=== PATIENT | female | born 1955 | race Caucasian/White ===

== ENCOUNTER 2019-02-20 06:26 | Day surgery (SDC) | payer OTHER, MEDICARE ==
[2019-02-15 15:14] VITALS: BMI 23.9
[2019-02-20] MEDS ORDERED: MIDAZOLAM HCL 2 MG/2 ML SINGLE DOSE VIAL ONE ×2 (06:41)
[2019-02-20] MEDS ORDERED: PROPOFOL 20 ML ONE ×2 (06:41)
[2019-02-20] MEDS ORDERED: oxyCODONE HCL 5 MG TABLET PO PRN (07:01)
[2019-02-20] MEDS ORDERED: ONDANSETRON 4 MG/2 ML VIAL IVPUSH PRN (07:01)
[2019-02-20] MEDS ORDERED: POVIDONE-IODINE 5% OPHTHALMIC PREP 30 ML SOLUTION ONE (07:02)
[2019-02-20] MEDS ORDERED: ERYTHROMYCIN 0.5% OPHTHALMIC OINTMENT 3.5 GM TUBE ONE (07:02)
[2019-02-20] MEDS ORDERED: TETRACAINE 0.5% OPHTH SOLN 2 ML BOTTLE ONE (07:02)
[2019-02-20] MEDS ORDERED: LIDOCAINE 1%/EPI 1:100000 (20 ML MULTI DOSE VIAL) ONE (07:03)
[2019-02-20] MEDS ORDERED: LACTATED RINGERS SOLUTION 1,000 ML IV SCH (07:15)
[2019-02-20] MEDS ORDERED: GLYCOPYRROLATE 0.2 MG/1 ML VIAL ONE (07:42)
[2019-02-20] MEDS ORDERED: ceFAZolin SODIUM 1 GM VIAL ONE (07:59)
[2019-02-20] MEDS ORDERED: FLUMAZENIL 0.5 MG/5 ML VIAL ONE (08:28)
[2019-02-20] MEDS ORDERED: DEXAMETHASONE SOD PHOSPHATE 4 MG/1 ML VIAL ONE (09:33)
[2019-02-20] MEDS ORDERED: ONDANSETRON 4 MG/2 ML VIAL ONE (09:33)
[2019-02-20 10:08] VITALS: TEMP 97.7
[2019-02-20] MEDS ORDERED: ACETAMINOPHEN 325 MG TABLET (FP) ONE (10:41)
[2019-02-20] MEDS ORDERED: ACETAMINOPHEN 325 MG TABLET (FP) PO PRN (10:50)
[2019-02-20 11:06] VITALS: BP 141/64; PULSE 72
--- NOTE | 2019-02-20 13:53 | OP ---
DATE OF OPERATION: 02/20/2019 PREOPERATIVE DIAGNOSIS: Corneal ptosis, right upper lid with visual obstruction. POSTOPERATIVE DIAGNOSIS: Corneal ptosis, right upper lid with visual obstruction. PROCEDURE: External levator advancement reattachment, right upper lid. SURGEON: Luna Sands MD ANESTHESIA: Local with sedation. COMPLICATIONS: None. ESTIMATED BLOOD LOSS: 1 mL. OPERATIVE REPORT: Patient brought to the operating room, placed on the operating room table. Vital signs monitored by anesthesia. Tetracycline was placed in both eyes. Time-out was performed and then 0.75 mL of 1% Xylocaine, 1:100,000 epinephrine was injected after the lid crease was marked approximately 10 mm above the lash line centrally and curving nasally and temporally. Subcutaneous injection along the lid crease massaged down to the margin. Massaged. Applied hemostasis. Patient was prepped and draped in the usual sterile fashion exposing both eyes. Lid crease incision was made with a 15 blade, carried through skin and subcutaneous tissue. Humboldt needle was used for hemostasis, and dissection was carried down to the orbicularis. The orbicularis was then dissecting superiorly exposing the septum, which was widely opened exposing preaponeurotic fat. The levator aponeurosis was then identified. It was markedly diaphanous and dehisced. The leading edge was then advanced to the anterior superior tarsus, and initially a mattressed, horizontal 6-0 nylon was placed, and this was tied, and the patient was allowed to wake up and placed in upright position. The lid was deemed to be too high; therefore, the suture was removed and replaced with 2 interrupted 6-0 nylon sutures with partial thickness tarsal bites, and this resulted in a good lid height approximately 2-3 mm above the visual axis with good contour. These were tied. The lid was everted demonstrating no penetration of suture. Irrigation was used. Antibiotic irrigation with bacitracin was used, and good hemostasis was evidenced, and the wound was then closed after a small amount of supplemental injection was given subcutaneously along the incision of 1% Xylocaine, 1:100,000 epinephrine. The wound was closed with running 6-0 plain suture with plastic technique. Erythromycin ointment was placed in the eye and on the sutures, and the patient was taken to recovery room in stable condition. LUNA SANDS M.D. [id number]
== END 2019-02-20 10:55 | disposition home or self-care (01) ==
LOC: FASU 06:26
PROVIDERS: ATTEND Ophthalmology
PROC: 08SN0ZZ Reposition Right Upper Eyelid, Open Approach (ICD-10-PCS; principal; 2019-02-20 08:03)
DX: H02.421 Myogenic ptosis of right eyelid (principal)
CPT/HCPCS: 94760